=== PATIENT | female | born 1940 | race Caucasian/White ===

== ENCOUNTER 2018-03-12 11:09 | Inpatient (IN) | payer MEDICARE, BC ==
[2018-03-12] MEDS ORDERED: Loperamide 2 MG Cap PO PRN (15:14)
[2018-03-12] MEDS ORDERED: Psyllium 0.52 GM Cap PO PRN (15:14)
[2018-03-12] MEDS ORDERED: Acetaminophen 500 MG Tab PO PRN (15:14)
[2018-03-12] MEDS ORDERED: Sodium Chloride 0.65% Nasal Spray 45 ML Bottle NAS PRN (15:30)
[2018-03-12] MEDS: Pantoprazole 40 MG Tab.CR PO SCH (17:25)
[2018-03-12] MEDS: Sodium Chloride 1 GM Tab PO SCH (17:25)
[2018-03-12] MEDS: Sucralfate 1 GM Tab PO SCH ×2 (17:25→21:20)
--- NOTE | 2018-03-12 18:03 | PCM.HP ---
H&P History of Present Illness - General Date of Service: 03/12/18 Admit Problem/Dx: Admission Diagnosis/Problem Admission Diagnosis/Problem Stroke occurring within last month Source of Information: Patient, Family, Old Records - History of Present Illness Initial Comments - Free Text/Narative: Assist 77-year-old female patient that had a bleeding stroke. She is transferred to [facility] and had a craniotomy. This is about a week ago. She is found to be hyponatremic and was put on a fluid restriction and odium pills. Her son states she was on to sodium pills twice a day until yesterday went to 3 times a day. Patient has no concerns. She feels that she has a bit of weakness all over more than the right side. She has problems double vision. She denies dysphagia, aphasia, headaches, fevers, chills. Before she had the stroke she had a EGD that showed gastritis per Dr. Villanueva. Still having problems with her stomach a little bit. left parietal head Pain Score (Numeric/FACES): 5 - Related Data Allergies/Adverse Reactions: Allergies Allergy/AdvReac Type Severity Reaction Status Date / Time citalopram [From Celexa] Allergy Nausea Verified 03/05/18 16:59 esomeprazole [From Nexium] Allergy Other Verified 03/05/18 16:59 omeprazole Allergy Other Verified 03/05/18 16:59 propranolol Allergy Swelling Verified 03/05/18 16:59 ranitidine [From Zantac] Allergy Other Verified 03/05/18 17:00 topiramate [From Topamax] Allergy Swelling Verified 03/05/18 17:00 Home Medications: Home Meds Alendronate Sodium [Fosamax] 70 mg PO ROTHMAN 03/05/18 [History] Cholecalciferol (Vitamin D3) [D3-2000] 2,000 unit PO DAILY 03/05/18 [History] Donepezil HCl 10 mg PO DAILY 03/05/18 [History] Levothyroxine 75 mcg PO DAILY@0600 03/05/18 [History] Loperamide HCl [Loperamide] 2 mg PO QID PRN 03/05/18 [History] Omeprazole 20 mg PO DAILY@1700 03/05/18 [History] Sodium Chloride 2 gm PO TIDMEALS 03/05/18 [History] Sucralfate 1 gm PO QIDACANDBED 03/05/18 [History] atorvaSTATin [Lipitor] 10 mg PO BEDTIME 03/05/18 [History] Acetaminophen [Acetaminophen Extra Strength] 500 mg PO Q6H PRN 03/12/18 [History ] Aded Eye Vitamin 1 cap PO DAILY 03/12/18 [History] Alum Hydrox/Mag Hydrox/Simeth [Maalox Advanced] 15 ml PO DAILY PRN 03/12/18 [ History] L.acidoph,Paracasei, B.lactis [Probiotic] 1 cap PO DAILY 03/12/18 [History] LORazepam 0.5 mg PO Q8H PRN 03/12/18 [History] Loratadine 10 mg PO DAILY 03/12/18 [History] Magnesium Amino Acid Chelate [Magnesium] 100 mg PO DAILY 03/12/18 [History] Mineral Oil, Light/Mineral Oil [Soothe Xp Eye Drops] 1 drop EYEBOTH TID [History] Psyllium [Metamucil] 1.04 gm PO DAILY PRN 03/12/18 [History] Sodium Chloride/Sodium Bicarb [Sinus Wash Kettle Neti Pot Kit] 1 dose SO ASDIRECTED PRN 03/12/18 [History] levETIRAcetam [Keppra] 500 mg PO Q12H 03/12/18 [History] Past Medical History HEENT History: Reports: Hard of Hearing, Macular Degeneration, Sinusitis Cardiovascular History: Reports: High Cholesterol, Hypertension Gastrointestinal History: Reports: Gastritis, GERD, Hemorrhoids, Irritable Bowel Syndrome, Other (See Below) Other Gastrointestinal History: Diverticulitis Genitourinary History: Reports: UTI, Recurrent, Other (See Below) Other Genitourinary History: Hiatal hernia; Urethral Stricture Dilatation 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: , Other (See Below) Other OB/BYN History: breast biopsy Musculoskeletal History: Reports: Arthritis, Back Pain, Chronic, Fibromyalgia, Neck Pain, Chronic, Osteoporosis, Other (See Below) Other Musculoskeletal History: Baldwin's cyst Right knee; dislocation of TMJ; Neurological History: Reports: Brain Injury, Headaches, Chronic, Migraines, Other (See Below) Other Neuro History: dementia; hx of intracerebral hemorrhage s/p 8--18; cervical spine 5 and 6 degeneration Psychiatric History: Reports: Anxiety, Dementia, Depression Endocrine/Metabolic History: Reports: Hypothyroidism, Osteoporosis - Infectious Disease History Infectious Disease History: Reports: Chicken Pox, Measles, Mumps - Past Surgical History Head Surgeries/Procedures: Reports: None HEENT Surgical History: Reports: Adenoidectomy, Cataract Surgery, Tonsillectomy Cardiovascular Surgical History: Reports: None GI Surgical History: Reports: Cholecystectomy, Colonoscopy, EGD, Other (See Below) Other GI Surgeries/Procedures: Tonsillectomy Female Surgical History: Reports: D&C, Hysterectomy Endocrine Surgical History: Reports: None Neurological Surgical History: Reports: None Musculoskeletal Surgical History: Reports: Carpal Tunnel, Other (See Below) Other Musculoskeletal Surgeries/Procedures:: elvia wrists; foot surgery Social & Family History - Family History Family Medical History: Noncontributory - Tobacco Use Smoking Status *Q: Never Smoker Second Hand Smoke Exposure: No - Caffeine Use Caffeine Use: Reports: None - Recreational Drug Use Recreational Drug Use: No H&P Review of Systems - Review of Systems: Review Of Systems: See Below General: Reports: No Symptoms HEENT: Reports: Visual Changes Pulmonary: Reports: No Symptoms Cardiovascular: Reports: No Symptoms Gastrointestinal: Reports: Abdominal Pain Genitourinary: Reports: No Symptoms Musculoskeletal: Reports: No Symptoms Skin: Reports: No Symptoms Psychiatric: Reports: No Symptoms Neurological: Reports: Weakness Hematologic/Lymphatic: Reports: No Symptoms Immunologic: Reports: No Symptoms Exam - Exam Exam: See Below - Vital Signs Vital Signs: Last Vital Signs Temp 98 F 03/12/18 13:50 Pulse 77 03/12/18 13:50 Resp 18 03/12/18 13:50 BP 113/65 03/12/18 13:50 Pulse Ox 99 03/12/18 14:00 Weight: 140 lb 1.6 oz - Exam General: Alert, Cooperative HEENT: Hearing Intact, Mucosa Moist & [place], Posterior Pharynx Clear Neck: Supple, Trachea Midline Lungs: Clear to Auscultation, Normal Respiratory Effort Cardiovascular: Regular Rate, Regular Rhythm, Normal S1, Normal S2. No: Bradycardia, Tachycardia GI/Abdominal Exam: Normal Bowel Sounds, Soft, Non-Tender, No Organomegaly, No Distention, No Mass Back Exam: Normal Inspection, Full Range of Motion Extremities: Normal Inspection, Normal Range of Motion, Non-Tender, No Pedal Edema Skin: Rash (Groin erythema) Neurological: Normal Speech, Normal Tone, Other (Walks adequately with a walker and assist.) Psychiatric: Alert, Normal Mood - Problem List (1) S/P craniotomy SNOMED Code(s): 462405233, 91826144, 483249457 ICD Code: Z98.890 - OTHER SPECIFIED POSTPROCEDURAL STATES Status: Acute Current Visit: Yes (2) CVA (cerebrovascular accident due to intracerebral hemorrhage) SNOMED Code(s): 500000754 ICD Code: I61.9 - NONTRAUMATIC INTRACEREBRAL HEMORRHAGE, UNSPECIFIED Status : Acute Current Visit: Yes (3) Gastritis SNOMED Code(s): 9187787 ICD Code: K29.70 - GASTRITIS, UNSPECIFIED, WITHOUT BLEEDING Status: Acute Current Visit: Yes (4) Tinea cruris SNOMED Code(s): 602452567 ICD Code: B35.6 - TINEA CRURIS Status: Acute Current Visit: Yes (5) Hyponatremia SNOMED Code(s): 13695152 ICD Code: E87.1 - HYPO-OSMOLALITY AND HYPONATREMIA Status: Acute Current Visit: Yes Problem List Initiated/Reviewed/Updated: Yes Orders Last 24hrs: Active Orders 24 hr Category Date Time Status Patient Status [ADT] Routine ADT 03/12/18 15:12 Active Oxygen Therapy [RC] PRN Care 03/12/18 15:12 Active Up With Assistance [RC] 09,13,17,21 Care 03/12/18 15:12 Active Vital Signs [RC] 08 Care 03/12/18 15:12 Active OT Evaluation and Treatment [CONS] Routine Cons 03/12/18 15:12 Active PT Evaluation and Treatment [CONS] Routine Cons 03/12/18 15:12 Active Regular Diet [DIET] Diet 03/12/18 Dinner Active BASIC METABOLIC PANEL,BMP [CHEM] AM Lab 03/13/18 05:11 Ordered Acetaminophen [Tylenol Extra Strength] Med 03/12/18 15:14 Active 500 mg PO Q6H PRN Aded Eye Vitamin Med 03/13/18 09:00 Hold 1 cap PO DAILY Alendronate [Fosamax] Med 03/15/18 06:00 Active 70 mg PO Rothman@0600 Alum Hydroxide/Mag Hydroxide [Mag-Al Susp] Med 03/12/18 15:25 Active 15 ml PO DAILY PRN Donepezil [Aricept] Med 03/13/18 09:00 Active 10 mg PO DAILY LORazepam [Ativan] Med 03/12/18 15:14 Active 0.5 mg PO Q8H PRN Levothyroxine Med 03/13/18 06:00 Active 75 mcg PO DAILY@0600 Loperamide [Imodium] Med 03/12/18 15:14 Active 2 mg PO QID PRN Loratadine [Claritin] Med 03/13/18 09:00 Active 10 mg PO DAILY Magnesium Oxide Med 03/13/18 09:00 Active 400 mg PO DAILY Pantoprazole [ProTONIX] Med 03/12/18 17:00 Active 40 mg PO DAILY@1700 Polyvinyl Alcohol [LiquiTears 1.4% Ophth Soln] Med 03/12/18 21:00 Active 0 ml EYEBOTH TID Psyllium [Metamucil] Med 03/12/18 15:14 Active 1.04 gm PO DAILY PRN Sodium Chloride Med 03/12/18 18:00 Active 2 gm PO TIDMEALS Sodium Chloride 0.65% [[place] Nasal [place]] Med 03/12/18 15:30 Active 0 ml SO ASDIRECTED PRN Sucralfate [Carafate] Med 03/12/18 17:30 Active 1 gm PO QIDACANDBED atorvaSTATin [Lipitor] Med 03/12/18 21:00 Active 10 mg PO BEDTIME levETIRAcetam [Keppra] Med 03/12/18 21:00 Active 500 mg PO Q12H Arlene Sutures Removal [RC] ROUTINE Oth 03/20/18 09:00 Active Resuscitation Status Routine Resus Stat 03/12/18 15:12 Ordered Medication Orders Acetaminophen (Tylenol Extra Strength) 500 mg PO Q6H PRN PRN Reason: Pain Last Admin: 03/12/18 15:55 Dose: 500 mg Al Hydroxide/Mg Hydroxide (Mag-Al Susp) 15 ml PO DAILY PRN PRN Reason: HEARTBURN/INDIGESTION Alendronate Sodium (Fosamax) 70 mg PO Rothman@0600 RIA Artificial Tears (Liquitears 1.4% Ophth Soln) 0 ml EYEBOTH TID RIA Atorvastatin Calcium (Lipitor) 10 mg PO BEDTIME RIA Donepezil HCl (Aricept) 10 mg PO DAILY RIA Levetiracetam (Keppra) 500 mg PO Q12H RIA Levothyroxine Sodium (Levothyroxine) 75 mcg PO DAILY@0600 [facility] Loperamide HCl (Imodium) 2 mg PO QID PRN PRN Reason: Diarrhea Loratadine (Claritin) 10 mg PO DAILY [facility] Lorazepam (Ativan) 0.5 mg PO Q8H PRN PRN Reason: Anxiety Magnesium Oxide (Magnesium Oxide) 400 mg PO DAILY [facility] Non-Formulary Medication (Aded Eye Vitamin) 1 cap PO DAILY [facility] Pantoprazole Sodium (Protonix) 40 mg PO DAILY@1700 [facility] Last Admin: 03/12/18 17:25 Dose: 40 mg Psyllium Hydrophilic Mucilloid (Metamucil) 1.04 gm PO DAILY PRN PRN Reason: Constipation Sodium Chloride ([place] Nasal [place]) 0 ml SO ASDIRECTED PRN PRN Reason: DRYNESS/CONGESTION Sodium Chloride (Sodium Chloride) 2 gm PO TIDMEALS [facility] Last Admin: 03/12/18 17:25 Dose: 2 gm Sucralfate (Carafate) 1 gm PO QIDACANDBED [facility] Last Admin: 03/12/18 17:25 Dose: 1 gm Assessment/Plan Comment:: 1. Admit to swing bed. 2. PT/OT 3. She was on fluid restriction. We'll stop it for now and continue the 2 tabs of sodium pills 3 times a day and daily BMP 4. Medication reviewed and restarted. 5. Regular diet 6. Up with assist 7. Essential set up an appointment in the future with nephrology.
[2018-03-12] MEDS: levETIRAcetam 500 MG Tab PO SCH (21:20)
[2018-03-12] MEDS: Polyvinyl Alcohol 1.4% Ophth Soln 15 ML Bottle EYEBOTH SCH (21:21)
[2018-03-12] MEDS: atorvaSTATin 10 MG Tab PO SCH (21:21)
[2018-03-12] MEDS: Acetaminophen 500 MG Tab PO SCH (21:26)
[2018-03-13] MEDS: LORazepam 0.5 MG Tab PO PRN (05:44)
[2018-03-13] MEDS: Levothyroxine 75 MCG Tab PO SCH (05:45)
[2018-03-13] MEDS: Sucralfate 1 GM Tab PO SCH ×4 (07:19→21:06)
[2018-03-13] MEDS: Sodium Chloride 1 GM Tab PO SCH ×3 (07:19→17:04)
[2018-03-13] MEDS: Magnesium Oxide 400 MG Tab PO SCH (08:51)
[2018-03-13] MEDS: Polyvinyl Alcohol 1.4% Ophth Soln 15 ML Bottle EYEBOTH SCH ×3 (08:51→21:06)
[2018-03-13] MEDS: Loratadine 10 MG Tab PO SCH (08:51)
[2018-03-13] MEDS: Donepezil 10 MG Tab PO SCH (08:51)
[2018-03-13] MEDS: levETIRAcetam 500 MG Tab PO SCH ×2 (08:52→21:06)
[2018-03-13] MEDS ORDERED: [UNRECOGNIZED DRUG - OTHER] PO SCH (09:00)
[2018-03-13] MEDS: Acetaminophen 500 MG Tab PO SCH ×2 (09:06→14:53)
--- NOTE | 2018-03-13 14:05 | PN ---
DATE SEEN: 03/13/2018 HISTORY OF PRESENT ILLNESS: Evon Hadley is a 77-year-old, female, , lives in [place]. Son, Vasu, daughter, Shantel. She was admitted postsurgically. Presented with intracranial bleed, was seen at [facility] in [place], underwent craniotomy, week prior to admission. Hyponatremic fluid restrictions, discharge for concern. Primary issues were some visual disturbances and generalized weakness. Speech therapy under consideration. DIAGNOSTIC STUDIES: Sodium 132, chloride 97, normal GFR on 03/13/2018. Voices no complaints. PHYSICAL EXAMINATION: VITAL SIGNS: 37.0, 76 is the pulse, 134/60, 14 is respirations, 99%. GENERAL: Cooperative, conversant. NEUROLOGIC: Vision in question. No focal facial weakness. Cranial nerves 2-12 are intact. EXTREMITIES: Well perfused. Strength was symmetric, no focal weakness. CHEST: Clear. HEART: Regular. ABDOMEN: Benign. Craniotomy scar well healing. ASSESSMENT: Craniotomy, intracranial bleed. 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 /[id number] VANESA/MARNI
[2018-03-13] MEDS: Pantoprazole 40 MG Tab.CR PO SCH (17:03)
[2018-03-13] MEDS: Acetaminophen/Butalbital/Caffeine 325-50-40 MG Tab PO PRN (19:46)
[2018-03-13] MEDS: atorvaSTATin 10 MG Tab PO SCH (21:06)
[2018-03-14] MEDS: Acetaminophen/Butalbital/Caffeine 325-50-40 MG Tab PO PRN ×3 (01:20→17:04)
[2018-03-14] MEDS: Levothyroxine 75 MCG Tab PO SCH (05:44)
[2018-03-14] MEDS ORDERED: Miconazole 2% Vaginal Crm 45 GM Tube TOP ONE (05:45)
[2018-03-14] MEDS: Sucralfate 1 GM Tab PO SCH ×4 (06:31→20:44)
[2018-03-14] MEDS: Polyvinyl Alcohol 1.4% Ophth Soln 15 ML Bottle EYEBOTH SCH ×3 (08:40→20:49)
[2018-03-14] MEDS: Donepezil 10 MG Tab PO SCH (08:41)
[2018-03-14] MEDS: Sodium Chloride 1 GM Tab PO SCH ×3 (08:41→17:06)
[2018-03-14] MEDS: levETIRAcetam 500 MG Tab PO SCH ×2 (08:42→20:49)
[2018-03-14] MEDS: Magnesium Oxide 400 MG Tab PO SCH (08:42)
[2018-03-14] MEDS: Loratadine 10 MG Tab PO SCH (08:43)
[2018-03-14] MEDS ORDERED: Miconazole 2% Vaginal Crm 45 GM Tube VAG SCH (09:00)
--- NOTE | 2018-03-14 13:14 | PN ---
DATE SEEN: 03/14/2018 Evon Hadley is a 77-year-old, female, admitted for post craniotomy care. Had an intracranial bleed. In today for therapy and rehab. Doing well. Some evening headaches have improved, reviewed records from [facility]. Fioricet had been beneficial. Tylenol was reduced and discontinued due to Tylenol potential risk, Ultram p.r.n. for pain. Otherwise been feeling well. Laboratory studies none new. Medications reviewed. Timing appropriate. PHYSICAL EXAMINATION: VITAL SIGNS: 63.54 kg, 37 degrees, pulse 71, 134/60, 98% room air. GENERAL: Cooperative, conversant, soft spoken. SKIN: Craniotomy scar well healed. HEENT: Fundi benign, conjunctivae clear. Bright tympanic membranes. Mouth and oropharynx clear. CHEST: Clear in all lung tilley. HEART: Regular without ectopy or murmur. ABDOMEN: Benign. ASSESSMENT: Rehab, post craniotomy. PLAN: Medications, care and treatment appropriate, analgesics on board. Cooperative care and well being. /[id number] /MARNI
[2018-03-14] MEDS: traMADol 50 MG Tab PO PRN ×2 (13:47→20:45)
[2018-03-14] MEDS: Pantoprazole 40 MG Tab.CR PO SCH (17:38)
[2018-03-14] MEDS: atorvaSTATin 10 MG Tab PO SCH (20:49)
[2018-03-14] MEDS: Miconazole 2% Vaginal Crm 45 GM Tube TOP SCH (20:49)
[2018-03-15] MEDS: traMADol 50 MG Tab PO PRN ×2 (03:22→13:19)
[2018-03-15] MEDS: Levothyroxine 75 MCG Tab PO SCH (05:06)
[2018-03-15] MEDS: Alendronate 70 MG Tab PO SCH (05:07)
[2018-03-15] MEDS: Acetaminophen/Butalbital/Caffeine 325-50-40 MG Tab PO PRN ×4 (06:51→17:41)
[2018-03-15] MEDS: Sucralfate 1 GM Tab PO SCH ×4 (06:51→20:44)
[2018-03-15] MEDS: Sodium Chloride 1 GM Tab PO SCH ×3 (07:42→17:42)
[2018-03-15] MEDS: Polyvinyl Alcohol 1.4% Ophth Soln 15 ML Bottle EYEBOTH SCH ×3 (08:02→20:48)
[2018-03-15] MEDS: Magnesium Oxide 400 MG Tab PO SCH (08:03)
[2018-03-15] MEDS: Donepezil 10 MG Tab PO SCH (08:06)
[2018-03-15] MEDS: Loratadine 10 MG Tab PO SCH (08:07)
[2018-03-15] MEDS: levETIRAcetam 500 MG Tab PO SCH ×2 (08:07→20:44)
--- NOTE | 2018-03-15 14:18 | PN ---
DATE SEEN: 03/15/2018 SUBJECTIVE: Evon Hadley is a 77-year-old, female, seen here for followup. Underwent a craniotomy for intracranial bleed. Performed at [facility]. Here for swing bed purposes. History of low sodium during her hospital stay. LABORATORY STUDIES: From here 03/13/2018, sodium 132, potassium 4.0, GFR greater than 60. OBJECTIVE: VITAL SIGNS: 36.3, 94, 128/68, respirations 16, O2 saturation 96%. GENERAL: Soft spoken. HEENT: Craniotomy site, ella in place, left hemicranium intact. NECK: Benign. Thyroid small. CHEST: Clear in all lung tilley. CARDIAC: Heart regular. ABDOMEN: Benign. ASSESSMENT: Craniotomy, intracranial bleed. PLAN: Continue with present therapy. [place] out on Friday. Comfort care. Bathing and showering consideration. /[id number] VANESA/MARNI
[2018-03-15] MEDS: Pantoprazole 40 MG Tab.CR PO SCH (17:41)
[2018-03-15] MEDS: atorvaSTATin 10 MG Tab PO SCH (20:44)
[2018-03-15] MEDS: Miconazole 2% Vaginal Crm 45 GM Tube TOP SCH (20:48)
[2018-03-16] MEDS: Acetaminophen/Butalbital/Caffeine 325-50-40 MG Tab PO PRN ×4 (00:33→21:45)
[2018-03-16] MEDS: Levothyroxine 75 MCG Tab PO SCH (06:08)
[2018-03-16] MEDS: Sucralfate 1 GM Tab PO SCH ×4 (06:38→21:03)
[2018-03-16] MEDS: Sodium Chloride 1 GM Tab PO SCH ×3 (08:49→17:57)
[2018-03-16] MEDS: Polyvinyl Alcohol 1.4% Ophth Soln 15 ML Bottle EYEBOTH SCH ×3 (08:50→21:05)
[2018-03-16] MEDS: Loratadine 10 MG Tab PO SCH (08:50)
[2018-03-16] MEDS: Magnesium Oxide 400 MG Tab PO SCH (08:50)
[2018-03-16] MEDS: levETIRAcetam 500 MG Tab PO SCH ×2 (08:50→21:03)
[2018-03-16] MEDS: Donepezil 10 MG Tab PO SCH (08:50)
--- NOTE | 2018-03-16 10:35 | PN ---
DATE SEEN: 03/16/2018 SUBJECTIVE: Evon Hadley is a 77-year-old female, presently in swing bed. Underwent craniotomy at [facility]. In for rehab purposes. Appears to be a little increase in decline in mentation and memory. This had been ongoing prior to that time. Physical Therapy is actively involved. OBJECTIVE: VITAL SIGNS: 36.6, 68 is the pulse, 119/64, 82 is the mean blood pressure, 16 respirations, and O2 saturation 98%. GENERAL: Soft spoken, less forgettable this morning. NECK: Benign. Thyroid small. CHEST: Clear in all lung tilley. HEART: No ectopy or significant murmur. ABDOMEN: Benign. HEAD: Craniotomy, left lateral parietal region, ella in good position. ASSESSMENT: Postoperative care, intracranial bleed, therapy in place. PLAN: Medications, care and treatment appropriate. Pain appears to be controlled. The patient is comfortable with well being. /[id number] VANESA/MARNI
[2018-03-16] MEDS: traMADol 50 MG Tab PO PRN ×2 (12:48→18:58)
[2018-03-16] MEDS: LORazepam 0.5 MG Tab PO PRN (12:49)
[2018-03-16] MEDS: Terbinafine 1% Crm 30 GM Tube TOP SCH ×2 (12:49→21:04)
[2018-03-16] MEDS: Pantoprazole 40 MG Tab.CR PO SCH (17:02)
[2018-03-16] MEDS: atorvaSTATin 10 MG Tab PO SCH (21:03)
[2018-03-16] MEDS: Miconazole 2% Vaginal Crm 45 GM Tube TOP SCH (21:05)
[2018-03-17] MEDS: Levothyroxine 75 MCG Tab PO SCH (05:48)
[2018-03-17] MEDS: Sucralfate 1 GM Tab PO SCH ×4 (06:47→21:31)
[2018-03-17] MEDS: Sodium Chloride 1 GM Tab PO SCH ×3 (08:51→18:35)
[2018-03-17] MEDS: Magnesium Oxide 400 MG Tab PO SCH (08:52)
[2018-03-17] MEDS: Acetaminophen/Butalbital/Caffeine 325-50-40 MG Tab PO PRN ×3 (08:52→21:30)
[2018-03-17] MEDS: levETIRAcetam 500 MG Tab PO SCH ×2 (08:52→21:31)
[2018-03-17] MEDS: Loratadine 10 MG Tab PO SCH (08:52)
[2018-03-17] MEDS: Donepezil 10 MG Tab PO SCH (08:52)
[2018-03-17] MEDS: Polyvinyl Alcohol 1.4% Ophth Soln 15 ML Bottle EYEBOTH SCH ×3 (08:53→21:30)
[2018-03-17] MEDS: Terbinafine 1% Crm 30 GM Tube TOP SCH ×2 (08:53→21:31)
[2018-03-17] MEDS: traMADol 50 MG Tab PO SCH ×3 (11:12→22:34)
--- NOTE | 2018-03-17 11:57 | PN ---
DATE SEEN: 03/17/2018 SUBJECTIVE: Evon Hadley is a 77-year-old female, seen today for followup. Status post craniotomy for intracranial bleed. Neurologically, i.e. dementia, memory a problematic issue. Discharge planning to another facility, other than home, is planned. OBJECTIVE: VITAL SIGNS: 37.7, 72, 120/61, mean blood pressure 80, 20 respirations, and 95%. GENERAL: Soft spoken. Eye contact was good. Speech was soft spoken. HEAD: Surgical craniotomy wound, left parietal posterior scalp, left side, intact. NECK: Benign. CHEST: Clear. HEART: Regular. ASSESSMENT: Craniotomy, intracranial bleed, stable; neurological well-being declining. PLAN: As recommended, PT therapy, ongoing care, discharge to other facility likely planned. /[id number] VANESA/MARNI
[2018-03-17] MEDS: LORazepam 0.5 MG Tab PO PRN (14:59)
[2018-03-17] MEDS: Pantoprazole 40 MG Tab.CR PO SCH (16:45)
[2018-03-17] MEDS: Polyvinyl Alcohol 1.4% Ophth Soln 15 ML Bottle EYEBOTH PRN (16:45)
[2018-03-17] MEDS: Miconazole 2% Vaginal Crm 45 GM Tube TOP SCH (21:32)
[2018-03-17] MEDS: atorvaSTATin 10 MG Tab PO SCH (21:33)
[2018-03-18] MEDS: traMADol 50 MG Tab PO SCH ×4 (04:13→21:14)
[2018-03-18] MEDS: Sucralfate 1 GM Tab PO SCH ×4 (06:33→21:16)
[2018-03-18] MEDS: Levothyroxine 75 MCG Tab PO SCH (06:33)
[2018-03-18] MEDS: Magnesium Oxide 400 MG Tab PO SCH (08:33)
[2018-03-18] MEDS: Donepezil 10 MG Tab PO SCH (08:33)
[2018-03-18] MEDS: Sodium Chloride 1 GM Tab PO SCH ×3 (08:33→17:16)
[2018-03-18] MEDS: Terbinafine 1% Crm 30 GM Tube TOP SCH ×2 (08:34→21:17)
[2018-03-18] MEDS: Loratadine 10 MG Tab PO SCH (08:34)
[2018-03-18] MEDS: levETIRAcetam 500 MG Tab PO SCH ×2 (08:34→21:17)
[2018-03-18] MEDS: Polyvinyl Alcohol 1.4% Ophth Soln 15 ML Bottle EYEBOTH SCH ×3 (08:34→21:18)
--- NOTE | 2018-03-18 11:24 | PN ---
DATE SEEN: 03/18/2018 HISTORY OF PRESENT ILLNESS: Evon Hadley is a 77-year-old, female, seen today for followup. Swing bed status. Had previous craniotomy for intracranial bleed. Progress has been slow. Mentation well being an issue necessitating consideration for other living situation. Appetite has been off, eating reluctantly. Ambulatory skills have been under conflict. Chiropractic visit planned today. PHYSICAL EXAMINATION: VITAL SIGNS: 37.6, 68, 123/59, 16, and 94%. GENERAL: Soft spoken. HEENT: Visual field noted. NECK: Benign. CHEST: Clear in all lung tilley. HEART: Without ectopy or murmur. SKIN: Incision healing without conflict in left parietal area. Suture removal planned on Friday. ASSESSMENT: Postoperative care, craniotomy, intracranial bleed. Progressive decline in mental well being. PLAN: Local care, comfort measures, PT, discharge planning under consideration. /[id number] VANESA/MARNI
[2018-03-18] MEDS: Pantoprazole 40 MG Tab.CR PO SCH (17:16)
[2018-03-18] MEDS ORDERED: Acetaminophen 650 MG Tab.ER PO SCH (21:00)
[2018-03-18] MEDS: atorvaSTATin 10 MG Tab PO SCH (21:18)
[2018-03-18] MEDS: Miconazole 2% Vaginal Crm 45 GM Tube TOP SCH (21:19)
[2018-03-19] MEDS: traMADol 50 MG Tab PO SCH (04:18)
[2018-03-19] MEDS: Levothyroxine 75 MCG Tab PO SCH (05:00)
[2018-03-19] MEDS: Sodium Chloride 1 GM Tab PO SCH ×3 (07:51→17:17)
[2018-03-19] MEDS: Sucralfate 1 GM Tab PO SCH ×4 (07:51→21:05)
[2018-03-19] MEDS: Donepezil 10 MG Tab PO SCH (09:29)
[2018-03-19] MEDS: Loratadine 10 MG Tab PO SCH (09:29)
[2018-03-19] MEDS: Acetaminophen/Butalbital/Caffeine 325-50-40 MG Tab PO SCH ×3 (09:29→21:04)
[2018-03-19] MEDS: levETIRAcetam 500 MG Tab PO SCH ×2 (09:29→21:05)
[2018-03-19] MEDS: Magnesium Oxide 400 MG Tab PO SCH (09:29)
[2018-03-19] MEDS: Polyvinyl Alcohol 1.4% Ophth Soln 15 ML Bottle EYEBOTH SCH ×3 (09:30→21:09)
[2018-03-19] MEDS: Terbinafine 1% Crm 30 GM Tube TOP SCH ×2 (09:30→21:06)
[2018-03-19] MEDS: Aluminum Hydroxide/Magnesium Hydroxide Susp 30 ML Cup PO PRN (10:06)
[2018-03-19] MEDS: Bisacodyl 5 MG Tab PO PRN (11:25)
--- NOTE | 2018-03-19 11:38 | PN ---
DATE SEEN: 03/19/2018 SUBJECTIVE: Evon Hadley is a 77-year-old female in a swing bed. She had a craniotomy for an intracranial bleed. Headache management appears problematic. Ultram will benefit. Fioricet under consideration and changed, now on Tylenol and Ultram. Pain, difficult to observe the exact quantity. Memory issues and impact in question, somewhat difficult to address adequately with the patient. No recent stool. Laboratory studies: Sodium 132, 130, 127, yesterday 129. Others are satisfactory. Fluid restrictions in place. PHYSICAL EXAMINATION: VITAL SIGNS: 62.732 kg. 37.6, 123/59, 80, 94%, and 16. GENERAL: Soft spoken. Craniotomy site intact, ella clearly in place, minimal ecchymoses. NECK: Some limited range of motion. Neck: Benign. Thyroid small. CHEST: Clear in all lung tilley. No adventitious sounds. HEART: Regular, without ectopy or murmur. ABDOMEN: Benign. ASSESSMENT: 1. Craniotomy. 2. Intracranial bleed. 3. Pain control. PLAN: We will switch from Fioricet to Fiorinal. Tylenol routinely. Ultram for breakthrough pain. Proceed accordingly. /[id number] VANESA/MARNI
[2018-03-19] MEDS: Pantoprazole 40 MG Tab.CR PO SCH (17:16)
[2018-03-19] MEDS: Polyvinyl Alcohol 1.4% Ophth Soln 15 ML Bottle EYEBOTH PRN (17:16)
[2018-03-19] MEDS: atorvaSTATin 10 MG Tab PO SCH (21:09)
[2018-03-19] MEDS: Miconazole 2% Vaginal Crm 45 GM Tube TOP SCH (21:10)
[2018-03-20] MEDS: Acetaminophen/Butalbital/Caffeine 325-50-40 MG Tab PO SCH ×4 (03:33→20:10)
[2018-03-20] MEDS: Levothyroxine 75 MCG Tab PO SCH (05:08)
[2018-03-20] MEDS: Sucralfate 1 GM Tab PO SCH ×4 (06:29→20:10)
[2018-03-20] MEDS: Sodium Chloride 1 GM Tab PO SCH ×3 (07:36→17:38)
[2018-03-20] MEDS: Loratadine 10 MG Tab PO SCH (08:14)
[2018-03-20] MEDS: Donepezil 10 MG Tab PO SCH (08:14)
[2018-03-20] MEDS: Magnesium Oxide 400 MG Tab PO SCH (08:14)
[2018-03-20] MEDS: Polyvinyl Alcohol 1.4% Ophth Soln 15 ML Bottle EYEBOTH SCH ×3 (08:14→20:13)
[2018-03-20] MEDS: Terbinafine 1% Crm 30 GM Tube TOP SCH ×2 (08:14→20:12)
[2018-03-20] MEDS: levETIRAcetam 500 MG Tab PO SCH ×2 (08:15→20:11)
[2018-03-20] MEDS: Pantoprazole 40 MG Tab.CR PO SCH (17:07)
[2018-03-20] MEDS: atorvaSTATin 10 MG Tab PO SCH (20:12)
[2018-03-20] MEDS: Miconazole 2% Vaginal Crm 45 GM Tube TOP SCH (20:13)
[2018-03-21] MEDS: Acetaminophen/Butalbital/Caffeine 325-50-40 MG Tab PO SCH ×4 (02:37→20:02)
[2018-03-21] MEDS: Levothyroxine 75 MCG Tab PO SCH (05:56)
[2018-03-21] MEDS: Sucralfate 1 GM Tab PO SCH ×4 (06:00→20:09)
[2018-03-21] MEDS: Sodium Chloride 1 GM Tab PO SCH ×3 (08:58→17:01)
[2018-03-21] MEDS: Polyvinyl Alcohol 1.4% Ophth Soln 15 ML Bottle EYEBOTH SCH ×3 (08:59→20:10)
[2018-03-21] MEDS: Loratadine 10 MG Tab PO SCH (08:59)
[2018-03-21] MEDS: Donepezil 10 MG Tab PO SCH (08:59)
[2018-03-21] MEDS: Magnesium Oxide 400 MG Tab PO SCH (08:59)
[2018-03-21] MEDS: levETIRAcetam 500 MG Tab PO SCH ×2 (08:59→20:09)
[2018-03-21] MEDS: Terbinafine 1% Crm 30 GM Tube TOP SCH ×2 (08:59→20:01)
[2018-03-21] MEDS: Pantoprazole 40 MG Tab.CR PO SCH (17:01)
[2018-03-21] MEDS: Miconazole 2% Vaginal Crm 45 GM Tube TOP SCH (20:00)
[2018-03-21] MEDS: atorvaSTATin 10 MG Tab PO SCH (20:10)
[2018-03-22] MEDS: Acetaminophen/Butalbital/Caffeine 325-50-40 MG Tab PO SCH ×4 (03:17→20:36)
[2018-03-22] MEDS: Levothyroxine 75 MCG Tab PO SCH (06:35)
[2018-03-22] MEDS: Sucralfate 1 GM Tab PO SCH ×4 (06:35→20:37)
[2018-03-22] MEDS: Alendronate 70 MG Tab PO SCH (06:36)
[2018-03-22] MEDS: Sodium Chloride 1 GM Tab PO SCH ×3 (08:34→18:25)
[2018-03-22] MEDS: Donepezil 10 MG Tab PO SCH (08:35)
[2018-03-22] MEDS: Loratadine 10 MG Tab PO SCH (08:35)
[2018-03-22] MEDS: levETIRAcetam 500 MG Tab PO SCH ×2 (08:36→20:38)
[2018-03-22] MEDS: Polyvinyl Alcohol 1.4% Ophth Soln 15 ML Bottle EYEBOTH SCH ×3 (08:36→20:39)
[2018-03-22] MEDS: Terbinafine 1% Crm 30 GM Tube TOP SCH ×2 (08:36→20:38)
[2018-03-22] MEDS: Magnesium Oxide 400 MG Tab PO SCH (08:37)
[2018-03-22] MEDS: Pantoprazole 40 MG Tab.CR PO SCH (16:51)
[2018-03-22] MEDS: atorvaSTATin 10 MG Tab PO SCH (20:39)
[2018-03-23] MEDS: Acetaminophen/Butalbital/Caffeine 325-50-40 MG Tab PO SCH ×4 (03:37→21:15)
[2018-03-23] MEDS: Levothyroxine 75 MCG Tab PO SCH (06:44)
[2018-03-23] MEDS: Sucralfate 1 GM Tab PO SCH ×4 (06:44→21:17)
[2018-03-23] MEDS: Magnesium Oxide 400 MG Tab PO SCH (09:00)
[2018-03-23] MEDS: levETIRAcetam 500 MG Tab PO SCH ×2 (09:00→21:17)
[2018-03-23] MEDS: Loratadine 10 MG Tab PO SCH (09:00)
[2018-03-23] MEDS: Donepezil 10 MG Tab PO SCH (09:00)
[2018-03-23] MEDS: Polyvinyl Alcohol 1.4% Ophth Soln 15 ML Bottle EYEBOTH SCH ×3 (09:00→21:19)
[2018-03-23] MEDS: Sodium Chloride 1 GM Tab PO SCH ×3 (09:00→19:02)
[2018-03-23] MEDS: Terbinafine 1% Crm 30 GM Tube TOP SCH ×2 (09:01→21:19)
[2018-03-23] MEDS: Pantoprazole 40 MG Tab.CR PO SCH (17:51)
[2018-03-23] MEDS: Polyvinyl Alcohol 1.4% Ophth Soln 15 ML Bottle EYEBOTH PRN ×2 (18:10→22:27)
[2018-03-23] MEDS: atorvaSTATin 10 MG Tab PO SCH (21:18)
[2018-03-24] MEDS: Acetaminophen/Butalbital/Caffeine 325-50-40 MG Tab PO SCH ×4 (02:24→19:02)
[2018-03-24] MEDS: Sucralfate 1 GM Tab PO SCH ×4 (06:41→20:43)
[2018-03-24] MEDS: Levothyroxine 75 MCG Tab PO SCH (06:41)
[2018-03-24] MEDS: Sodium Chloride 1 GM Tab PO SCH ×3 (07:31→18:55)
[2018-03-24] MEDS: Donepezil 10 MG Tab PO SCH (08:18)
[2018-03-24] MEDS: Loratadine 10 MG Tab PO SCH (08:18)
[2018-03-24] MEDS: levETIRAcetam 500 MG Tab PO SCH ×2 (08:19→20:44)
[2018-03-24] MEDS: Polyvinyl Alcohol 1.4% Ophth Soln 15 ML Bottle EYEBOTH SCH ×3 (08:20→20:45)
[2018-03-24] MEDS: Magnesium Oxide 400 MG Tab PO SCH (08:20)
[2018-03-24] MEDS: Terbinafine 1% Crm 30 GM Tube TOP SCH ×2 (08:22→20:44)
[2018-03-24] MEDS: Polyvinyl Alcohol 1.4% Ophth Soln 15 ML Bottle EYEBOTH PRN ×2 (10:28→16:58)
[2018-03-24] MEDS: Aluminum Hydroxide/Magnesium Hydroxide Susp 30 ML Cup PO PRN (11:07)
[2018-03-24] MEDS: Pantoprazole 40 MG Tab.CR PO SCH (17:24)
[2018-03-24] MEDS: atorvaSTATin 10 MG Tab PO SCH (20:45)
[2018-03-25] MEDS: Bisacodyl 5 MG Tab PO PRN (01:35)
[2018-03-25] MEDS: Acetaminophen/Butalbital/Caffeine 325-50-40 MG Tab PO SCH ×2 (01:35→08:50)
[2018-03-25] MEDS: Levothyroxine 75 MCG Tab PO SCH (05:54)
[2018-03-25] MEDS: Sucralfate 1 GM Tab PO SCH ×2 (05:59→11:33)
[2018-03-25] MEDS: Polyvinyl Alcohol 1.4% Ophth Soln 15 ML Bottle EYEBOTH SCH (08:51)
[2018-03-25] MEDS: Terbinafine 1% Crm 30 GM Tube TOP SCH (08:53)
[2018-03-25] MEDS: Magnesium Oxide 400 MG Tab PO SCH (09:00)
[2018-03-25] MEDS: Loratadine 10 MG Tab PO SCH (09:00)
[2018-03-25] MEDS ORDERED: Tuberculin, PPD 5 Units/0.1 ML 1 ML MDV IDERM ONE (09:00)
[2018-03-25] MEDS: Sodium Chloride 1 GM Tab PO SCH (09:00)
[2018-03-25] MEDS: Donepezil 10 MG Tab PO SCH (09:01)
[2018-03-25] MEDS: levETIRAcetam 500 MG Tab PO SCH (09:01)
--- NOTE | 2018-03-25 09:24 | PCM.DCSUM1 ---
Discharge Summary - Hospital Course Free Text/Narrative:: Evon was admitted 2 weeks ago status post craniotomy after a stroke. She's been undergoing physical therapy but has not deemed strong enough to be independent and will be discharged to the snf. Check a CT last week at the end, that shows essentially the same as it was previously. Diagnosis: Stroke: Yes Modified R[place]anne Scale: No Signif.Disability Despite Sympt.Able to Carry Out Usual Act./Duties Modified [place] Scale Score: 1 - Discharge Data Discharge Date: 03/25/18 Discharge Disposition: DC/Tfer to SNF 03 Condition: Good - Patient Summary/Data Consults: Consultations 03/12/18 15:12 OT Evaluation and Treatment [CONS] Routine Please Evaluate and Treat. OT Reason for Consult: ADL's This query below is only for informational purposes and is not editable. Admission Diagnosis/Problem: Stroke occurring within last month PT Evaluation and Treatment [CONS] Routine Please Evaluate and Treat. PT Reason for Consult: Ambulation This query below is only for informational purposes and is not editable. Admission Diagnosis/Problem: Stroke occurring within last month 03/13/18 11:36 Consult to Speech Language Pathology [BETTING AGENCY MANAGER Evaluation and Treatment] [CONS] Routine Please Evaluate and Treat BETTING AGENCY MANAGER Reason for Consult: CRANIAL BLEED AND SPEECH IMPAIRMENT This query below is only for informational purposes and is not editable. Admission Diagnosis/Problem: Stroke occurring within last month - Patient Instructions Diet: Heart Healthy Diet Activity: As Tolerated Driving: Do Not Drive - Discharge Plan Home Medications: Home Meds Alendronate Sodium [Fosamax] 70 mg PO KING 03/05/18 [History] Cholecalciferol (Vitamin D3) [D3-2000] 2,000 unit PO DAILY 03/05/18 [History] Donepezil HCl 10 mg PO DAILY 03/05/18 [History] Levothyroxine 75 mcg PO DAILY@0600 03/05/18 [History] Loperamide HCl [Loperamide] 2 mg PO QID PRN 03/05/18 [History] Sodium Chloride 2 gm PO TIDMEALS 03/05/18 [History] Sucralfate 1 gm PO QIDACANDBED 03/05/18 [History] atorvaSTATin [Lipitor] 10 mg PO BEDTIME 03/05/18 [History] Acetaminophen [Acetaminophen Extra Strength] 500 mg PO Q6H PRN 03/12/18 [History ] Alum Hydrox/Mag Hydrox/Simeth [Maalox Advanced] 15 ml PO DAILY PRN 03/12/18 [ History] LORazepam 0.5 mg PO Q8H PRN 03/12/18 [History] Loratadine 10 mg PO DAILY 03/12/18 [History] Psyllium [Metamucil] 1.04 gm PO DAILY PRN 03/12/18 [History] levETIRAcetam [Keppra] 500 mg PO Q12H 03/12/18 [History] Acetaminophen/Butalbital/Caff [Fioricet 325-50-40 MG] 1 tab PO Q6H #0 tablet [Rx] Magnesium Oxide 400 mg PO DAILY tablet 03/25/18 [Rx] Pantoprazole [ProTONIX] 40 mg PO DAILY@1700 tab.cr 03/25/18 [Rx] Polyvinyl Alcohol [LiquiTears 1.4% Ophth Soln] 0 ml EYEBOTH Q1H PRN bottle [Rx] - Discharge Summary/Plan Comment DC Time >30 min.: Yes - General Info Date of Service: 03/25/18 Admission Dx/Problem (Free Text: Admission Diagnosis/Problem Admission Diagnosis/Problem Stroke occurring within last month Functional Status: Reports: Tolerating Diet - Review of Systems General: Reports: No Symptoms - Patient Data Vitals - Most Recent: Last Vital Signs Temp 98.0 F 03/25/18 07:20 Pulse 70 03/25/18 07:20 Resp 18 03/25/18 07:20 BP 122/59 L 03/25/18 07:20 Pulse Ox 99 03/25/18 07:20 Weight - Most Recent: 62.732 kg I&O - Last 24 hours: Intake & Output 03/24/18 03/25/18 03/25/18 22:59 06:59 14:59 Intake Total 200 220 Output Total 200 Balance 200 220 -200 Med Orders - Current: Current Medications Acetaminophen/Butalbital/Caffeine (Fioricet 325-50-40 Mg) 1 tab PO Q6H RIA Last Admin: 03/25/18 08:50 Dose: 1 tab Al Hydroxide/Mg Hydroxide (Mag-Al Susp) 15 ml PO DAILY PRN PRN Reason: HEARTBURN/INDIGESTION Last Admin: 03/24/18 11:07 Dose: 15 ml Alendronate Sodium (Fosamax) 70 mg PO King@0600 [facility] Last Admin: 03/22/18 06:36 Dose: 70 mg Artificial Tears (Liquitears 1.4% Ophth Soln) 0 ml EYEBOTH TID [facility] Last Admin: 03/25/18 08:51 Dose: 1 drop Artificial Tears (Liquitears 1.4% Ophth Soln) 0 ml EYEBOTH Q1H PRN PRN Reason: Dry Eyes Last Admin: 03/24/18 16:58 Dose: 1 drop Atorvastatin Calcium (Lipitor) 10 mg PO BEDTIME [facility] Last Admin: 03/24/18 20:45 Dose: 10 mg Bisacodyl (Dulcolax) 5 mg PO DAILY PRN PRN Reason: Constipation Last Admin: 03/25/18 01:35 Dose: 5 mg Donepezil HCl (Aricept) 10 mg PO DAILY [facility] Last Admin: 03/25/18 09:01 Dose: 10 mg Levetiracetam (Keppra) 500 mg PO Q12H [facility] Last Admin: 03/25/18 09:01 Dose: 500 mg Levothyroxine Sodium (Levothyroxine) 75 mcg PO DAILY@0600 [facility] Last Admin: 03/25/18 05:54 Dose: 75 mcg Loperamide HCl (Imodium) 2 mg PO QID PRN PRN Reason: Diarrhea Loratadine (Claritin) 10 mg PO DAILY [facility] Last Admin: 03/25/18 09:00 Dose: 10 mg Lorazepam (Ativan) 0.5 mg PO Q8H PRN PRN Reason: Anxiety Last Admin: 03/17/18 14:59 Dose: 0.5 mg Magnesium Oxide (Magnesium Oxide) 400 mg PO DAILY [facility] Last Admin: 03/25/18 09:00 Dose: 400 mg Non-Formulary Medication (Aded Eye Vitamin) 1 cap PO DAILY [facility] Pantoprazole Sodium (Protonix) 40 mg PO DAILY@1700 [facility] Last Admin: 03/24/18 17:24 Dose: 40 mg Psyllium Hydrophilic Mucilloid (Metamucil) 1.04 gm PO DAILY PRN PRN Reason: Constipation Sodium Chloride ([place] Nasal [place]) 0 ml SO ASDIRECTED PRN PRN Reason: DRYNESS/CONGESTION Sodium Chloride (Sodium Chloride) 2 gm PO TIDMEALS [facility] Last Admin: 03/25/18 09:00 Dose: 2 gm Sucralfate (Carafate) 1 gm PO 0700,1100,1700,2100 [facility] Last Admin: 03/25/18 05:59 Dose: 1 gm Terbinafine HCl (Lamisil At 1% Crm) 0 gm TOP BID [facility] Last Admin: 03/25/18 08:53 Dose: 1 applic Discontinued Medications Acetaminophen (Tylenol Extra Strength) 500 mg PO Q6H PRN PRN Reason: Pain Last Admin: 03/12/18 15:55 Dose: 500 mg Acetaminophen (Tylenol Extra Strength) 1,000 mg PO TID [facility] Last Admin: 03/13/18 14:53 Dose: 1,000 mg Acetaminophen (Tylenol Arthritis Pain) 1,300 mg PO BID [facility] Last Admin: 03/18/18 21:23 Dose: 1,300 mg Acetaminophen/Butalbital/Caffeine (Fioricet 325-50-40 Mg) 1 tab PO Q6H PRN PRN Reason: Pain Last Admin: 03/17/18 21:30 Dose: 1 tab Acetaminophen/Butalbital/Caffeine (Fioricet 325-50-40 Mg) 2 tab PO Q6H PRN PRN Reason: Pain Last Admin: 03/17/18 08:52 Dose: 2 tab Acetaminophen/Butalbital/Caffeine (Fioricet 325-50-40 Mg) 1 tab PO Q6H [facility] Last Admin: 03/24/18 08:17 Dose: 1 tab Miconazole (Miconazole 2% Vaginal) 1 gm VAG DAILY [facility] Stop: 03/20/18 09:01 Miconazole (Miconazole 2% Vaginal) 1 gm TOP DAILY ONE Stop: 03/14/18 05:46 Last Admin: 03/14/18 05:44 Dose: 1 applic Miconazole (Miconazole 2% Vaginal) 1 gm TOP BEDTIME [facility] Stop: 03/21/18 21:01 Last Admin: 03/21/18 20:00 Dose: 1 applic Sucralfate (Carafate) 1 gm PO QIDACANDBED [facility] Last Admin: 03/20/18 11:20 Dose: 1 gm Tramadol HCl (Ultram) 50 mg PO Q6H PRN PRN Reason: Pain Last Admin: 03/16/18 18:58 Dose: 50 mg Tramadol HCl (Ultram) 50 mg PO Q6H RIA Last Admin: 03/19/18 04:18 Dose: 50 mg Tuberculin PPD (Aplisol) 5 unit IDERM ONETIME ONE Stop: 03/25/18 09:01 Last Admin: 03/25/18 08:56 Dose: 5 unit - Exam General: Reports: Alert
[2018-03-25] MEDS ORDERED: Bisacodyl 10 MG Supp RECTAL PRN (09:26)
== END 2018-03-25 11:00 | DRG 948 ==
LOC: FB.MS 13:26
PROVIDERS: ADMIT Family Medicine; ATTEND Family Medicine
DX: R53.1 Weakness (principal); E87.1 Hypo-osmolality and hyponatremia; Z98.890 Other specified postprocedural states; Z66 Do not resuscitate; Z86.73 Personal history of transient ischemic attack (TIA), and cerebral infarction without residual deficits; I10 Essential (primary) hypertension; K29.70 Gastritis, unspecified, without bleeding; E78.00 Pure hypercholesterolemia, unspecified; K21.9 Gastro-esophageal reflux disease without esophagitis; F03.90 Unspecified dementia, unspecified severity, without behavioral disturbance, psychotic disturbance, mood disturbance, and anxiety; E03.9 Hypothyroidism, unspecified; R47.9 Unspecified speech disturbances; R51 Headache; Z11.1 Encounter for screening for respiratory tuberculosis; F41.9 Anxiety disorder, unspecified; K58.9 Irritable bowel syndrome, unspecified; M81.0 Age-related osteoporosis without current pathological fracture; M79.7 Fibromyalgia; M19.90 Unspecified osteoarthritis, unspecified site; M54.9 Dorsalgia, unspecified; G89.29 Other chronic pain; Z87.440 Personal history of urinary (tract) infections; H91.90 Unspecified hearing loss, unspecified ear; H35.30 Unspecified macular degeneration; Z88.8 Allergy status to other drugs, medicaments and biological substances
CPT/HCPCS: 36415; 70450; 80048; 83935; 84300; 86580; 96125-GN; 97110-GO; 97110-GP; 97116-GP; 97140-GP; 97161-GP; 97167-GO; 97530-GO; 97535-GO; A9270-GY; G0515-GN; G0515-GO

== ENCOUNTER 2018-03-30 17:48 | Emergency (ER) | payer MEDICARE, BC ==
--- NOTE | 2018-03-30 18:29 | EDM.PDOC ---
ED HPI GENERAL MEDICAL PROBLEM - General Chief Complaint: Upper Extremity Injury/Pain Stated Complaint: RIGHT SIDE WEAKNESS, SEVERE HEADACHE Time Seen by Provider: 03/30/18 18:15 Source of Information: Reports: Patient, Family History Limitations: Reports: No Limitations - History of Present Illness INITIAL COMMENTS - FREE TEXT/NARRATIVE: Evon returns to [facility] ED with the appearance of R sided weakness at the SNF this afternoon. She has been leaning to the right, avoiding use of RUE, and unable to transfer on the RLE. Nursing staff notified the family who requested evaluation this evening. Current VS are stable, with obvious clinical R hemiparesis. Headache Pain Score (Numeric/FACES): 5 - Related Data Allergies Allergy/AdvReac Type Severity Reaction Status Date / Time citalopram [From Celexa] Allergy Nausea Verified 03/30/18 17:54 esomeprazole [From Nexium] Allergy Other Verified 03/30/18 17:54 omeprazole Allergy Other Verified 03/30/18 17:54 propranolol Allergy Swelling Verified 03/30/18 17:54 ranitidine [From Zantac] Allergy Other Verified 03/30/18 17:54 topiramate [From Topamax] Allergy Swelling Verified 03/30/18 17:54 Home Meds: Home Meds Alendronate Sodium [Fosamax] 70 mg PO ROTHMAN 03/05/18 [History] Cholecalciferol (Vitamin D3) [D3-2000] 2,000 unit PO DAILY 03/05/18 [History] Donepezil HCl 10 mg PO DAILY 03/05/18 [History] Levothyroxine 75 mcg PO DAILY@0600 03/05/18 [History] Loperamide HCl [Loperamide] 2 mg PO QID PRN 03/05/18 [History] Sodium Chloride 2 gm PO TIDMEALS 03/05/18 [History] Sucralfate 1 gm PO QIDACANDBED 03/05/18 [History] atorvaSTATin [Lipitor] 10 mg PO BEDTIME 03/05/18 [History] Acetaminophen [Acetaminophen Extra Strength] 500 mg PO Q6H PRN 03/12/18 [History ] Alum Hydrox/Mag Hydrox/Simeth [Maalox Advanced] 15 ml PO DAILY PRN 03/12/18 [ History] LORazepam 0.5 mg PO Q8H PRN 03/12/18 [History] Loratadine 10 mg PO DAILY 03/12/18 [History] levETIRAcetam [Keppra] 500 mg PO Q12H 03/12/18 [History] Magnesium Oxide 400 mg PO DAILY tablet 03/25/18 [Rx] Pantoprazole [ProTONIX] 40 mg PO DAILY@1700 tab.cr 03/25/18 [Rx] Polyvinyl Alcohol [LiquiTears 1.4% Ophth Soln] 0 ml EYEBOTH Q1H PRN bottle [Rx] Butalbital/Acetaminophen [Butalbital-Acetaminophn 50-325] 1 tab PO Q6H 03/30/18 [History] Polyethylene Glycol 3350 [MiraLAX] 17 gm PO DAILY 03/30/18 [History] Polyvinyl Alcohol [Artificial Tears] 1 drop EYEBOTH QID 03/30/18 [History] traMADol [Ultram] 25 mg PO Q6H PRN 03/30/18 [History] Past Medical History HEENT History: Reports: Hard of Hearing, Macular Degeneration, Sinusitis Cardiovascular History: Reports: High Cholesterol, Hypertension Gastrointestinal History: Reports: Gastritis, GERD, Hemorrhoids, Irritable Bowel Syndrome, Other (See Below) Other Gastrointestinal History: Diverticulitis Genitourinary History: Reports: UTI, Recurrent, Other (See Below) Other Genitourinary History: Hiatal hernia; Urethral Stricture Dilatation PORTABLE GRINDING MACHINE OPERATOR History: Reports: , Other (See Below) Other PORTABLE GRINDING MACHINE OPERATOR History: breast biopsy Musculoskeletal History: Reports: Arthritis, Back Pain, Chronic, Fibromyalgia, Neck Pain, Chronic, Osteoporosis, Other (See Below) Other Musculoskeletal History: Baldwin's cyst Right knee; dislocation of TMJ; Neurological History: Reports: Brain Injury, Headaches, Chronic, Migraines, Other (See Below) Other Neuro History: dementia; hx of intracerebral hemorrhage s/p 8-3-18; cervical spine 5 and 6 degeneration Psychiatric History: Reports: Anxiety, Dementia, Depression Endocrine/Metabolic History: Reports: Hypothyroidism, Osteoporosis - Infectious Disease History Infectious Disease History: Reports: Chicken Pox, Measles, Mumps - Past Surgical History Head Surgeries/Procedures: Reports: None HEENT Surgical History: Reports: Adenoidectomy, Cataract Surgery, Tonsillectomy Cardiovascular Surgical History: Reports: None GI Surgical History: Reports: Cholecystectomy, Colonoscopy, EGD, Other (See Below) Other GI Surgeries/Procedures: Tonsillectomy Female Surgical History: Reports: D&C, Hysterectomy Endocrine Surgical History: Reports: None Neurological Surgical History: Reports: Intracranial Musculoskeletal Surgical History: Reports: Carpal Tunnel, Other (See Below) Other Musculoskeletal Surgeries/Procedures:: elvia wrists; foot surgery Social & Family History - Family History Family Medical History: Noncontributory - Tobacco Use Smoking Status *Q: Unknown Ever Smoked Second Hand Smoke Exposure: No - Caffeine Use Caffeine Use: Reports: Coffee - Recreational Drug Use Recreational Drug Use: No Review of Systems - Review of Systems Review Of Systems: ROS reveals no pertinent complaints other than HPI. ED EXAM, GENERAL - Physical Exam Exam: See Below Exam Limited By: Physical Impairment (R hemiparesis) General Appearance: Alert, WD/WN, No Apparent Distress Eye Exam: Bilateral Eye: Normal Inspection, PERRL, Vision Changes (field cut to R) Ears: Normal External Exam Nose: Normal Inspection Throat/Mouth: Normal Inspection, Normal Oropharynx, Normal Voice, No Airway Compromise Head: Normocephalic, Other (healing scar from craniotomy L occiput) Neck: Normal Inspection, Supple, Non-Tender Respiratory/Chest: Lungs Clear, Normal Breath Sounds Cardiovascular: Regular Rate, Rhythm, No Murmur GI/Abdominal: Normal Bowel Sounds, Non-Tender, No Organomegaly, No Distention, No Mass (Female) Exam: Deferred Rectal (Female) Exam: Deferred Back Exam: Normal Inspection, Other (R sided weakness producing truncal instability) Extremities: Normal Inspection, Other (R hemiparesis) Neurological: Alert, CN II-XII Intact, Slow to Respond, Memory Loss Recent Events Psychiatric: Normal Mood, Flat Affect Skin Exam: Warm, Dry, Intact, Pallor Lymphatic: No Adenopathy Course - Vital Signs Text/Narrative:: Following assessment at the [facility] ED, a noncontrast Head CT was performed, revealing a new 3.5 cm x 2.5 cm intracerebral hemorrhage with some edema. Case was discussed with Dr Marin Neurosurgery at [facility], and she will be transferred by ground ambulance for assessment. Last Recorded V/S: Last Vital Signs Temp 36.8 C 03/30/18 17:50 Pulse 75 03/30/18 17:50 Resp 18 03/30/18 17:50 BP 143/73 H 03/30/18 17:50 Pulse Ox 100 03/30/18 17:50 - Orders/Labs/Meds Orders: Active Orders 24 hr Category Date Time Status Head wo Cont [CT] Urgent Exams 03/30/18 18:22 Taken Departure - Departure Time of Disposition: 19:31 Disposition: DC/Tfer to Other 70 Condition: Poor Clinical Impression: CVA (cerebrovascular accident due to intracerebral hemorrhage) Qualifiers: Intracerebral hemorrhage etiology: nontraumatic Cerebral hemorrhage location: cerebral hemisphere, subcortical portion Laterality: left Qualified Code(s): I61.0 - Nontraumatic intracerebral hemorrhage in hemisphere, subcortical - Discharge Information *PRESCRIPTION DRUG MONITORING PROGRAM REVIEWED*: Not Applicable *COPY OF PRESCRIPTION DRUG MONITORING REPORT IN PATIENT ALLEN: Not Applicable Referrals: Sudhir Pérez MD [Primary Care Provider] - Forms: ED Department Discharge - Problem List & Annotations (1) CVA (cerebrovascular accident due to intracerebral hemorrhage) SNOMED Code(s): 213005241 Code(s): I61.9 - NONTRAUMATIC INTRACEREBRAL HEMORRHAGE, UNSPECIFIED Status : Acute Current Visit: Yes Annotation/Comment:: Transfer to [facility] Neurosurgery Dept for management. Qualifiers: Intracerebral hemorrhage etiology: nontraumatic Cerebral hemorrhage location: cerebral hemisphere, subcortical portion Laterality: left Qualified Code(s): I61.0 - Nontraumatic intracerebral hemorrhage in hemisphere, subcortical - My Orders Last 24 Hours: My Active Orders 03/30/18 18:22 Head wo Cont [CT] Urgent - Assessment/Plan Last 24 Hours: My Active Orders 03/30/18 18:22 Head wo Cont [CT] Urgent Plan: Per Neurosurgery.
[2018-03-30] MEDS ORDERED: HYDROmorphone 2 MG/ML SDV IVPUSH ONE (19:35)
[2018-03-30] MEDS ORDERED: Sodium Chloride 0.9% 10 ML Syringe FLUSH PRN (19:35)
== END 2018-03-30 19:50 | disposition other institution (70) ==
LOC: FB.ED 17:48
DX: I61.0 Nontraumatic intracerebral hemorrhage in hemisphere, subcortical (principal); I10 Essential (primary) hypertension; Z88.1 Allergy status to other antibiotic agents; Z88.8 Allergy status to other drugs, medicaments and biological substances; Z79.899 Other long term (current) drug therapy
CPT/HCPCS: 70450; 96374; 99285; J1170; J7050